=== PATIENT | male | born 1955 | race Caucasian/White ===

== ENCOUNTER 2022-01-22 12:04 | Emergency (ER) | payer OTHER ==
[~2022-01-22] VITALS: Ht 182.9 cm; Wt 95.3 kg
[2022-01-22] MEDS ORDERED: ZESTRIL20 MG PO (12:08)
== END 2022-01-22 15:20 | disposition home or self-care (01) ==
LOC: ER 12:04
DX: R42 Dizziness and giddiness (principal)